=== PATIENT | male | born 2005 | race Caucasian/White ===

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

== ENCOUNTER 2024-09-10 00:57 | Emergency (ER) | payer OTHER ==
[2024-09-10 01:02] VITALS: TEMP 98.4; BMI 26.6
[2024-09-10] MEDS ORDERED: ACETAMINOPHEN INJECTION 100 ML ONE (01:36)
[2024-09-10] MEDS ORDERED: ONDANSETRON 4 MG/2 ML VIAL ONE (01:36)
[2024-09-10] MEDS: SODIUM CHLORIDE 0.9% 500 ML INFUS.BAG IV ONE (01:48)
[2024-09-10] MEDS: ONDANSETRON 4 MG/2 ML VIAL IVPUSH ONE (01:48)
[2024-09-10] MEDS: ACETAMINOPHEN 1000 MG/100 ML BAG IVPB ONE (01:48)
[2024-09-10] MEDS ORDERED: FAMOTIDINE 20 MG/50 ML IVPB 20 MG/50 ML MG IVPB ONE (01:49)
[2024-09-10] MEDS: FAMOTIDINE 20 MG/50 ML IVPB 20 MG/50 ML MG IVPB ONE (01:53)
[2024-09-10 02:10] LABS: BASO % 0.6 % (0-2.0); EOS % 0.3 % (0-4.5); HEMATOCRIT 46.9 % (35.4-49); HEMOGLOBIN 16.1 GM/dL (11.7-16.9); LYMPH % 3.8 % (8-40); MCH 28.9 pg (25.7-33.7); MCHC 34.4 g/dl (32.0-35.9); MEAN CELL VOLUME 84.1 fl (80-96); MEAN PLT VOLUME 8.7 fl (7.5-11.1); MONO % 5.7 % (3.8-10.2); NEUT % 89.6 % (42.8-82.8); PLATELET COUNT 212 10^3/uL (134-434); RBC 5.58 M/mm3 (4.00-5.60); RDW 13.2 % (11.9-15.9); WHITE BLOOD COUNT 11.3 K/mm3 (4.0-10.0)
[2024-09-10 02:18] LABS: INR 1.12 (0.83-1.09); PROTHROMBIN TIME (PATIENT) 12.2 SEC (9.7-13.0)
[2024-09-10 02:21] LABS: ACTIVATED PTT 25.2 SECONDS (25.2-36.5)
[2024-09-10 02:42] LABS: POTASSIUM 3.9 mmol/L (3.5-5.1)
[2024-09-10 02:44] LABS: CALCIUM 9.1 mg/dL (8.5-10.1)
[2024-09-10 02:45] LABS: ALBUMIN 4.3 g/dl (3.4-5.0); BLOOD UREA NITROGEN 20.8 mg/dL (7-18)
[2024-09-10 02:48] LABS: CREATININE 1.1 mg/dL (0.55-1.3)
[2024-09-10 02:49] LABS: BILIRUBIN,TOTAL 1.2 mg/dL (0.2-1)
[2024-09-10 02:59] LABS: TOT PROT 7.4 g/dl (6.4-8.2)
[2024-09-10] MEDS ORDERED: METOCLOPRAMIDE HCL INJECTION 10 MG/2 ML VIAL ONE (03:14)
[2024-09-10] MEDS: METOCLOPRAMIDE HCL INJECTION 10 MG/2 ML VIAL IVPUSH ONE (03:20)
[2024-09-10 03:24] VITALS: BP 114/70; PULSE 75; RESP 18
== END 2024-09-10 04:43 | disposition home or self-care (01) ==
LOC: JER 00:57
PROC: 3E033GC Introduction of Other Therapeutic Substance into Peripheral Vein, Percutaneous Approach (ICD-10-PCS; principal; 2024-09-10)
PROC: 3E033NZ Introduction of Analgesics, Hypnotics, Sedatives into Peripheral Vein, Percutaneous Approach (ICD-10-PCS; 2024-09-10)
PROC: 3E033GC Introduction of Other Therapeutic Substance into Peripheral Vein, Percutaneous Approach (ICD-10-PCS; 2024-09-10)
PROC: 3E033GC Introduction of Other Therapeutic Substance into Peripheral Vein, Percutaneous Approach (ICD-10-PCS; 2024-09-10)
DX: R11.2 Nausea with vomiting, unspecified (principal); R10.84 Generalized abdominal pain; R00.0 Tachycardia, unspecified; Z20.822 Contact with and (suspected) exposure to COVID-19
CPT/HCPCS: 0241U-QW; 36415; 80053; 83690; 85025; 85610; 85730; 86140; 86850; 86900; 86901; 93005; 93010; 99284-25; J0131